=== PATIENT | female | born 1990 | race Two or more races ===

== ENCOUNTER 2022-09-09 14:39 | Emergency (ER) | payer OTHER ==
[~2022-09-09] VITALS: Ht 152.4 cm; Wt 46.3 kg
== END 2022-09-09 19:14 | disposition home or self-care (01) ==
LOC: ER 14:39
DX: N39.0 Urinary tract infection, site not specified (principal); B34.9 Viral infection, unspecified; D64.9 Anemia, unspecified; Z85.89 Personal history of malignant neoplasm of other organs and systems; Z20.822 Contact with and (suspected) exposure to COVID-19